=== PATIENT | female | born 1985 | race Caucasian/White ===

== ENCOUNTER 2018-12-08 04:10 | Inpatient (IN) | payer MEDICAID ==
[~2018-12-08] VITALS: Ht 162.6 cm; Wt 78.9 kg
[2018-12-08] MEDS ORDERED: NALBUPHINE HCL 10 MG/ML AMP IVP PRN (04:15)
[2018-12-08] MEDS ORDERED: LR 1,000 ML IV SCH (04:15)
[2018-12-08] MEDS ORDERED: LR 1,000 ML IV ONE (04:15)
[2018-12-08] MEDS ORDERED: OXYTOCIN/0.9 % SODIUM CHLORIDE 1,000 ML IV SCH ×2 (04:15→13:47)
[2018-12-08 04:19] VITALS: BP_SYST 108
[2018-12-08] MEDS: CLINDAMYCIN 900 mg/50mL D5W 50 ML IV SCH ×2 (05:04→12:55)
[2018-12-08 05:31] LABS: BASOPHILS % (AUTO) 0.6 % (0.0-2.0); EOSINOPHILS # (AUTO) 0.1 K/uL (0.0-0.4); EOSINOPHILS % (AUTO) 1.7 % (0.0-4.0); HEMATOCRIT 37.6 % (36-48); HEMOGLOBIN 13.2 g/dL (12.0-16.0); LYMPHOCYTES # (AUTO) 1.8 K/uL (1.0-5.5); LYMPHOCYTES % (AUTO) 23.1 % (20.5-51.5); MEAN CORPUSCULAR HEMOGLOBIN 31 pg (27-31); MEAN CORPUSCULAR HGB CONC 35 % (32-36); MEAN CORPUSCULAR VOLUME 89 fL (79.0-98.0); MONOCYTES # (AUTO) 0.6 K/uL (0.0-1.0); NEUTROPHILS # (AUTO) 5.2 K/uL (1.8-7.7); NEUTROPHILS % (AUTO) 66.6 % (40.0-70.0); PLATELET COUNT (AUTO) 178 K/uL (130-430); RED BLOOD CELL COUNT(AUTO) 4.22 MIL/uL (4.2-6.2); RED CELL DISTRIBUTION WIDTH 13.3 % (9.0-15.0); WHITE BLOOD COUNT (AUTO) 7.8 K/uL (4.8-10.8)
[2018-12-08] MEDS ORDERED: ROPIVACAINE HCL/PF 0.2% 100 ML ONE (09:02)
[2018-12-08] MEDS ORDERED: fentaNYL CITRATE/PF 100 MCG/2 ML AMP ONE ×2 (09:02→09:26)
[2018-12-08] MEDS ORDERED: LR 500 ML IV ONE (09:42)
[2018-12-08] MEDS ORDERED: ePHEDrine sulfate 50 MG/ML VIAL IVP PRN (09:45)
[2018-12-08] MEDS ORDERED: fentaNYL CITRATE/PF 100 MCG/2 ML AMP EP ONE (09:45)
[2018-12-08] MEDS ORDERED: FENT2mCg/mL-ROPIVA0.2%/NS EPID 100 ML EP SCH (09:45)
[2018-12-08] MEDS ORDERED: OXYTOCIN/0.9 % SODIUM CHLORIDE 1,000 ML IV ONE (13:47)
[2018-12-08] MEDS ORDERED: ANUSOL 1 EA SUPP.RECT (PREPARATION H) RC PRN (14:00)
[2018-12-08] MEDS ORDERED: DERMOPLAST SPRAY TP PRN (14:00)
[2018-12-08] MEDS ORDERED: HYDROCORTISONE 0.5%, 28.35 GM TOPICAL CREAM TP PRN (14:00)
[2018-12-08] MEDS ORDERED: LANOLIN 7 GM OINT. TP PRN (14:00)
[2018-12-08] MEDS ORDERED: DIPH-TET-PERTUS Vaccine 0.5 ML VIAL (ADACEL) I.M. PRN (14:00)
[2018-12-08] MEDS ORDERED: DOCUSATE SODIUM 100 MG CAPSULE PO PRN (14:00)
[2018-12-08] MEDS ORDERED: SENNOSIDES/DOCUSATE SODIUM 1 TAB TABLET(SENOKOT-S) PO PRN (14:00)
[2018-12-08] MEDS ORDERED: WITCH HAZEL LEAF 1 MED.PAD MED.PAD TP PRN (14:00)
[2018-12-08] MEDS ORDERED: METHYLERGONOVINE MALEATE 0.2 MG TABLET PO PRN (14:00)
[2018-12-08] MEDS ORDERED: IBUPROFEN 600 MG TABLET PO ONE (14:00)
[2018-12-08] MEDS ORDERED: MEASLES,MUMPS&RUBELLA VACC/PF 12500 UNIT/0.5 ML VIAL SUBQ PRN (14:00)
[2018-12-08] MEDS ORDERED: TEMAZEPAM 15 MG CAPSULE PO PRN (21:00)
[2018-12-08] MEDS ORDERED: OXYCODONE/ACETAMINOPHEN 5-325 TABLET PO PRN (21:30)
[2018-12-08] MEDS: OXYCODONE/ACETAMINOPHEN 5-325 TABLET PO PRN (21:48)
[2018-12-09] MEDS: IBUPROFEN 600 MG TABLET PO SCH ×3 (00:13→12:36)
[2018-12-09] MEDS: OXYCODONE/ACETAMINOPHEN 5-325 TABLET PO PRN ×2 (02:43→14:11)
[2018-12-09 07:04] LABS: HEMATOCRIT 33.9 % (36-48); HEMOGLOBIN 11.7 g/dL (12.0-16.0)
== END 2018-12-09 14:45 | disposition home or self-care (01) | DRG 560 ==
LOC: SPU 04:10
PROVIDERS: ADMIT Obstetrics & Gynecology; ATTEND Obstetrics & Gynecology
PROC: 10E0XZZ Delivery of Products of Conception, External Approach (ICD-10-PCS; principal; 2018-12-08)
PROC: 3E0R3BZ Introduction of Anesthetic Agent into Spinal Canal, Percutaneous Approach (ICD-10-PCS; 2018-12-08)
PROC: 00HU33Z Insertion of Infusion Device into Spinal Canal, Percutaneous Approach (ICD-10-PCS; 2018-12-08)
DX: O99.824 Streptococcus B carrier state complicating childbirth (principal); R71.0 Precipitous drop in hematocrit; Z37.0 Single live birth; Z3A.39 39 weeks gestation of pregnancy
CPT/HCPCS: 36415; 81002-TC; 85018-TC; 85025; 86592; 86886; 86900; 86901; J2590; J2795; J3010; J3490; J7120